=== PATIENT | female | born 1950 | race Caucasian/White ===

== ENCOUNTER 2016-11-27 02:08 | Emergency (ER) | payer MEDICARE, OTHER ==
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
[2016-11-27 02:22] VITALS: BP 107/68
== END 2016-11-27 03:24 | disposition home or self-care (01) ==
LOC: JD.ED 02:08
DX: R25.2 Cramp and spasm (principal); Z86.73 Personal history of transient ischemic attack (TIA), and cerebral infarction without residual deficits
CPT/HCPCS: 99283; 99284